=== PATIENT | male | born 1940 | race Caucasian/White ===

== ENCOUNTER → 2018-03-01 09:39 | Outpatient (CLI) | payer MEDICARE, SELFPAY ==
--- NOTE | 2018-03-01 | DI.CT.S_ITS ---
PROCEDURE: CT CHEST WO CON INDICATIONS: PNEUMONIA OF LEFT LOWER LOBE DUE TO INFECTIOUS ORG TECHNIQUE: Noncontrast 5 mm thick sections acquired from the pulmonary apices to the posterior costophrenic angles. 7 mm thick coronal and sagittal MIP reformats were then acquired. For radiation dose reduction, the following was used: automated exposure control, adjustment of mA and/or kV according to patient size. COMPARISON: None. FINDINGS: Image quality: Excellent. Lungs and pleura: No acute air space opacities. There is a 3 mm right upper lobe nodular radiodensity, and a 5 mm densely calcified nodule at the right lower lobe with associated middle third calcified right hilar lymph node. At the lung bases note is made of emphysematous change and mild chronic appearing bronchitis without bronchiectasis. No consolidative pneumonia is found. No pleural effusions or pneumothorax. Central and peripheral airways are patent and normal in caliber. Mediastinum: Heart size is normal. No pericardial effusion. No mediastinal adenopathy by size criteria. Thoracic aorta and central pulmonary arteries are normal in size. Esophagus is normal in caliber. No hiatal hernia. Bones and chest wall: No suspicious bony lesions. No vertebral body compression fractures. No axillary or supraclavicular adenopathy by size criteria. Thyroid gland appears normal where well visualized. Abdomen: Visualized upper abdominal solid organs and bowel loops appear normal in the absence of contrast. IMPRESSION: Emphysematous change each lower lung. No focal pneumonia found. Calcified granuloma right midlung. 3 mm nonspecific radiodensity within the right upper lobe. If clinically desired a followup CT in 1 year could be obtained to confirm stability of appearance over time of that 3 mm nodule. Please refer to the 2017 revised Fleischner society guidelines for followup of pulmonary nodules. Dictated by: Devin Padilla M.D. on 03/01/2018 at 10:09 Approved by: Devin Padilla M.D. on 03/01/2018 at 11:26
== END ==
PROVIDERS: PCP Family Medicine; Visit Provider Family Medicine
DX: J18.1 Lobar pneumonia, unspecified organism (principal); R91.1 Solitary pulmonary nodule
CPT/HCPCS: 71250

== ENCOUNTER → 2019-01-18 12:03 | Outpatient (CLI) | payer MEDICARE, SELFPAY | PROVIDERS: PCP Family Medicine; Visit Provider Family Medicine | DX: N28.9 Disorder of kidney and ureter, unspecified (principal); I71.4 Abdominal aortic aneurysm, without rupture; Z53.9 Procedure and treatment not carried out, unspecified reason ==

== ENCOUNTER → 2019-02-08 10:33 | Outpatient (CLI) | payer MEDICARE, SELFPAY ==
--- NOTE | 2019-02-08 | DI.US.S_ITS ---
PROCEDURE: US ABDOMEN COMPLETE INDICATIONS: AAA; RENAL INSUFFICIENCY TECHNIQUE: Real-time scanning was performed of the abdominal and retroperitoneal organs, with image documentation. COMPARISON: [facility], , ABD AORTA ANEURYSM SCREENING, 01/21/2017, 11:04. FINDINGS: Liver: Liver is normal in size and homogeneous in echotexture. 2 simple hepatic cyst in Gallbladder: No gallstones identified. Normal gallbladder wall. No pericholecystic fluid. Negative sonographic Concepcion sign. Biliary ducts: Intrahepatic bile ducts are non-dilated. Extrahepatic bile duct caliber measures 5.4 mm. Normal is 6-7 mm or less in diameter, or 10 mm or less post-cholecystectomy. Pancreas: Visualized portions of the pancreas are sonographically normal. Spleen: Spleen is normal in size and homogeneous in echotexture. Kidneys: Kidneys are normal in size and echotexture. Right kidney measures 10.7 cm long; left kidney measures 11.9 cm long. No hydronephrosis or nephrolithiasis. No solid masses. Aorta: Mid to distal bilobed abdominal aortic aneurysm measuring up to 3.9 cm in maximal AP diameter and 4.4 cm transversely. (Previously measured 3.7 x 3.6 cm). Iliacs: Proximal common iliac arteries are normal in caliber at less than 2.5 cm. IVC: Intrahepatic inferior vena cava is patent. Miscellaneous: No free abdominal fluid. IMPRESSION: Interval increase in size in the infrarenal abdominal aortic aneurysm now 4.4 cm. Given the continued increase in size over the past few ultrasounds vascular surgery consultation should be considered. Recommend followup ultrasound. Dictated by: Bob SPENCER Interpreted: Kyle Hendrix MD on 02/08/2019 at 11:30 Approved by: Kyle Hendrix M.D. on 02/08/2019 at 13:42
== END ==
PROVIDERS: PCP Family Medicine; Visit Provider Family Medicine
DX: I71.4 Abdominal aortic aneurysm, without rupture (principal); N28.9 Disorder of kidney and ureter, unspecified
CPT/HCPCS: 76700

== ENCOUNTER → 2019-09-14 09:08 | Outpatient (CLI) | payer MEDICARE, SELFPAY ==
--- NOTE | 2019-09-14 | DI.US.S_ITS ---
PROCEDURE: US RETRO PERITONEAL LIMITED INDICATIONS: AAA TECHNIQUE: Real time scanning was performed of the aorta and iliac arteries, with image documentation. COMPARISON: [facility], , US ABDOMEN COMPLETE, 02/08/2019, 10:42. [facility], , ABD AORTA ANEURYSM SCREENING, 01/21/2017, 11:04. FINDINGS: Aorta: Proximal abdominal aorta not well-visualized. Mid-aorta measures 1. 7 cm. Distal abdominal aortic aneurysm with hourglass configuration measuring up to 3.8-4.3 cm AP, 4.4 cm transverse, 9.7 cm in length. There is intraluminal thrombus. Previously this measured 3.7-3.9 cm AP, 4.4 cm transverse, 9.0 cm in length. Iliac arteries: Right common iliac artery measures 0.9 cm. Left common iliac artery measures 1.0 cm. IMPRESSION: Overall, minimally enlarged distal abdominal aortic aneurysm since 02/08/19 as above Dictated by: Roberto Salvador M.D. on 09/14/2019 at 14:35 Approved by: Roberto Salvador M.D. on 09/14/2019 at 14:38
--- NOTE | 2019-09-14 09:28 | DI.CT.S_ITS ---
PROCEDURE: CT CHEST WO CON INDICATIONS: pulmonary nodule TECHNIQUE: Noncontrast 5 mm thick sections acquired from the pulmonary apices to the posterior costophrenic angles. 1 mm lung window, 5 mm thick coronal and sagittal and 7 mm axial MIP reformats were then acquired. For radiation dose reduction, the following was used: automated exposure control, adjustment of mA and/or kV according to patient size. COMPARISON: [facility], CT, CT CHEST WO [facility], 03/01/2018, 9:38. FINDINGS: Image quality: Excellent. Lungs and pleura: No acute consolidation. Unchanged appearance of scattered subcentimeter pulmonary nodules and calcified granulomas. Airway thickening in keeping with nonspecific bronchitis and/or reactive airways disease. No pleural effusions or pneumothorax. Upper lobe predominant centrilobular emphysema. Bibasilar scarring/atelectasis. On image 257/3, there is ill-defined curvilinear presumably medial left lower lobe scarring. Mediastinum: Heart size is normal. Coronary artery calcifications are present. No pericardial effusion. Calcified right hilar lymphadenopathy. No mediastinal adenopathy by size criteria. Thoracic aorta and central pulmonary arteries are normal in size. Prominent debris seen within the esophagus. Unchanged appearance of right retrocrural lymph node. Bones and chest wall: No suspicious bony lesions. No vertebral body compression fractures. No axillary or supraclavicular adenopathy by size criteria. Thyroid gland negative. Unchanged hepatic hypodensities. IMPRESSION: Interval progression in diffuse bibasilar scarring and interstitial disease. Grossly stable sub-5 mm pulmonary nodules and calcified granulomas presumably from from prior granulomatous disease. Dictated by: Roberto Salvador M.D. on 09/14/2019 at 9:52 Approved by: Roberto Salvador M.D. on 09/14/2019 at 10:03
== END ==
PROVIDERS: PCP Family Medicine; Referring Provider Family Medicine; Visit Provider Family Medicine
DX: R91.8 Other nonspecific abnormal finding of lung field (principal); J84.9 Interstitial pulmonary disease, unspecified; R59.0 Localized enlarged lymph nodes; I25.10 Atherosclerotic heart disease of native coronary artery without angina pectoris
CPT/HCPCS: 71250; 76775